=== PATIENT | male | born 1970 | race Caucasian/White ===

== ENCOUNTER 2018-04-14 08:28 | Emergency (ER) | payer BC ==
[2018-04-14 08:56] VITALS: BP 108/74
--- NOTE | 2018-04-14 09:16 | UC ---
Nausea/Vomiting/Diarrhea HPI - HPI Summary HPI Summary: diarrhea for about 5 days. It was worse on Thursday with severe cramping and very frequent diarrhea. It is slowly starting to lessen. No fever, chills, myalgias or bleeding. No other household contacts with diarrhea. They have well water. No prior medical problems or surgeries. - History of Current Complaint Chief Complaint: UCGI Stated Complaint: STOMACH ACHE/DIARRHEA Time Seen by Provider: 04/14/18 09:01 Hx Obtained From: Patient Onset/Duration: Gradual Onset, Lasting Days Severity Initially: Severe Severity Currently: Moderate Pain Intensity: 5 Location: Diffuse Aggravating Factor(s): Food Alleviating Factor(s): Nothing Nausea/Vomiting Presence: None Diarrhea Presence: Yes Diarrhea Frequency: Every 1-2 hours Diarrhea Characteristics: Watery, Malodorous - Allergies/Home Medications Allergies/Adverse Reactions: Allergies Allergy/AdvReac Type Severity Reaction Status Date / Time No Known Allergies Allergy Verified 04/14/18 08:49 Home Medications: Home Medications Acetaminophen TAB* [Tylenol TAB*] 975 mg PO Q6H PRN 04/14/18 [History Confirmed 04/14/18] Loperamide CAP* [Imodium CAP*] 2 - 4 mg PO SEE INSTRUCTIONS PRN 04/14/18 [ History Confirmed 04/14/18] PMH/Surg Hx/FS Hx/Imm Hx Previously Healthy: Yes - Surgical History Surgical History: None - Family History Known Family History: Positive: Other - no stomach related illness in the family. - Social History Occupation: Employed Full-time Alcohol Use: Occasionally Substance Use Type: None Smoking Status (MU): Heavy Every Day Tobacco Smoker Type: Smokeless Tobacco Amount Used/How Often: 1/2 can/day Length of Time of Smoking/Using Tobacco: Since Age 11 Review of Systems Gastrointestinal: Diarrhea All Other Systems Reviewed And Are Negative: Yes Physical Exam Triage Information Reviewed: Yes Appearance: Well-Appearing, No Pain Distress, Well-Nourished Vital Signs: Initial Vital Signs Temp 97.9 F 04/14/18 08:47 Pulse 76 04/14/18 08:47 Resp 16 04/14/18 08:47 BP 108/74 04/14/18 08:47 Pulse Ox 100 04/14/18 08:47 Vital Signs Reviewed: Yes Eyes: Positive: Conjunctiva Clear ENT: Positive: Normal ENT inspection Neck: Positive: Supple, Nontender, No Lymphadenopathy Respiratory: Positive: Lungs clear, Normal breath sounds, No respiratory distress, No accessory muscle use. Negative: Respiratory distress, Decreased breath sounds, Accessory muscle use, Rhonchi Cardiovascular: Positive: Brisk Capillary Refill Abdomen Description: Positive: No Organomegaly, Soft. Negative: CVA Tenderness (R), CVA Tenderness (L), Distended, Guarding Musculoskeletal: Positive: Strength Intact, ROM Intact, No Edema Neurological: Positive: Alert, Muscle Tone Normal. Negative: Fatigued Psychological: Positive: Age Appropriate Behavior Skin: Negative: rashes Naus/Vom/Diarrhea Course/Dx - Course Course Of Treatment: 5 days of improving diarrhea without any worrisome features such as blood, fever, tenderness. Stool to be sent for analysis. - Differential Dx/Diagnosis Provider Diagnoses: diarrhea. Discharge - Sign-Out/Discharge Documenting (check all that apply): Discharge/Admit/Transfer - Discharge Plan Condition: Good Disposition: HOME Prescriptions: Dicyclomine CAP* [Bentyl CAP*] 10 mg PO TID PRN #12 cap PRN Reason: cramping Diphenoxylat/Atrop 2.5-0.025M* [Lomotil TAB*] 1 tab PO QID #40 tab MDD 4 Patient Education Materials: Acute Diarrhea (ED) Referrals: No Primary Care Phys,NOPCP [Primary Care Provider] - - Billing Disposition and Condition Condition: GOOD Disposition: Home
== END 2018-04-14 09:33 | disposition home or self-care (01) ==
LOC: UCCORT 08:28
DX: R19.7 Diarrhea, unspecified (principal); F17.210 Nicotine dependence, cigarettes, uncomplicated
CPT/HCPCS: 82272; 87045; 87046; 87077; 87328; 87449; 87493; 87899; 99202; G0463

== ENCOUNTER 2018-12-20 08:24 | Emergency (ER) | payer BC ==
[2018-12-20 08:44] VITALS: BP 112/72
[2018-12-20] MEDS ORDERED: Ibuprofen ADULT LIQ* 600 MG/30 ML UDC PO ONE (08:52)
--- NOTE | 2018-12-20 08:52 | UC ---
UC General HPI - HPI Summary HPI Summary: PT C/O PAIN IN AND AROUND R EAR FOR ABOUT 9 HOURS. PAIN RADIATES INTO R FOREHEAD AND CHEEK. NO FEVER OR RASH. HAS SOME MILD THROAT IRRITATION. - INJURY OR DISCHARGE. OCCASIONAL RINGING IN THE EAR. - History of Current Complaint Chief Complaint: UCEar Stated Complaint: RT EAR COMPLAINT Time Seen by Provider: 12/20/18 08:40 Hx Obtained From: Patient Timing: Constant Pain Intensity: 6 Associated Signs & Symptoms: Negative: Dizziness, Fever, Headache, Nausea, Vomiting - Allergy/Home Medications Allergies/Adverse Reactions: Allergies Allergy/AdvReac Type Severity Reaction Status Date / Time No Known Allergies Allergy Verified 12/20/18 08:42 PMH/Surg Hx/FS Hx/Imm Hx Previously Healthy: Yes - Surgical History Surgical History: None - Family History Known Family History: Positive: Other - no stomach related illness in the family. - Social History Occupation: Employed Full-time Alcohol Use: Rare Substance Use Type: None Smoking Status (MU): Heavy Every Day Tobacco Smoker Type: Smokeless Tobacco Amount Used/How Often: 1/2 can/day Length of Time of Smoking/Using Tobacco: Since Age 11 Review of Systems All Other Systems Reviewed And Are Negative: Yes Constitutional: Positive: Negative Skin: Positive: Negative Eyes: Positive: Negative ENT: Positive: Ear Ache Respiratory: Positive: Negative Cardiovascular: Positive: Negative Gastrointestinal: Positive: Negative Genitourinary: Positive: Negative Motor: Positive: Negative Neurovascular: Positive: Negative Musculoskeletal: Positive: Negative Neurological: Positive: Negative Psychological: Positive: Negative Physical Exam Triage Information Reviewed: Yes Appearance: Well-Appearing Vital Signs: Initial Vital Signs Temp 98.3 F 12/20/18 08:39 Pulse 72 12/20/18 08:39 Resp 16 12/20/18 08:39 BP 112/72 12/20/18 08:39 Pulse Ox 100 12/20/18 08:39 Vital Signs Reviewed: Yes Eyes: Positive: Conjunctiva Clear ENT: Positive: Pharynx normal, TMs normal - L, TM red - R, Other - NO AURICULAR ADENOPATHY. NO MASTOID TENDERNESS. BOTH CANALS ARE CLEAR. NO PAIN WITH TAP ON R FACIAL NERVE. NO RASH.. Negative: Nasal congestion, Nasal drainage Neck: Positive: Supple, Nontender, No Lymphadenopathy Respiratory: Positive: Lungs clear, Normal breath sounds Cardiovascular: Positive: RRR, No Murmur Abdomen Description: Positive: Nontender, No Organomegaly, Soft Bowel Sounds: Positive: Present Musculoskeletal: Positive: ROM Intact Neurological: Positive: Other: - A&OX3, CN 2-12 INTACT. Psychological: Positive: Normal Response To Family Skin Exam: Normal Skin: Negative: Rashes Course/Dx - Differential Dx - Multi-Symptom Differential Diagnoses: Other - R OM ON EXAM AND NO CONCERN FOR MASTOIDITIS OR OE. NO RASH TO SUGGEST SHINGLES. - Diagnoses Provider Diagnosis: Otitis media Discharge - Sign-Out/Discharge Documenting (check all that apply): Patient Departure All imaging exams completed and their final reports reviewed: No Studies - Discharge Plan Condition: Stable Disposition: HOME Prescriptions: Amoxicillin PO (*) [Amoxicillin 875 MG (*)] 875 mg PO BID 10 Days #20 tab Patient Education Materials: Ear Infection (ED) Referrals: CURTIS Castrejon [Medical Doctor] - 7 Days Additional Instructions: RECHECK IMMEDIATELY FOR ANY WORSENING - Billing Disposition and Condition Condition: STABLE Disposition: Home - Attestation Statements Provider Attestation: Per institutional requirements, I have reviewed the chart, however, I was not consulted specifically or made aware of this patient by the midlevel provider. I did not personally evaluate, interact with , or disposition this patient.
== END 2018-12-20 09:01 | disposition home or self-care (01) ==
LOC: UCCORT 08:24
DX: H66.91 Otitis media, unspecified, right ear (principal); F17.290 Nicotine dependence, other tobacco product, uncomplicated
CPT/HCPCS: 99212; A9270-GY; G0463